=== PATIENT | male | born 2000 | race African-American/Black ===

== ENCOUNTER 2021-12-06 14:33 | Outpatient (REF) | payer OTHER, SELFPAY ==
--- NOTE | ~2021-12-06 | XR_ITS ---
EXAMINATION: XR CHEST CLINICAL INFORMATION: Positive PPD. Asymptomatic. COMPARISON: None TECHNIQUE: 2 views of the chest were obtained. FINDINGS: The lungs are clear. No airspace opacity or groundglass attenuation. No cavitary lesion or pleural reaction or effusion. The heart is normal in size. The vascularity is normal. The hilar and mediastinal contours and visualized bony structures are unremarkable. XR/XR chest 2V IMPRESSION: Unremarkable examination.
== END 2021-12-06 14:34 | disposition home or self-care (01) ==
LOC: HO.XRAY 14:33
DX: R76.11 Nonspecific reaction to tuberculin skin test without active tuberculosis (principal)
CPT/HCPCS: 71046